=== PATIENT | female | born 1960 | race Caucasian/White ===

== ENCOUNTER 2017-03-21 06:40 | Day surgery (SDC) | payer MEDICAID ==
[~2017-03-21] VITALS: Ht 160 cm; Wt 65.6 kg
[2017-03-21] VITALS (8 sets, daily range): BP systolic 97–125; BP diastolic 62–89
[~2017-03-21 06:40] MED LIST: FURO20TA4 PO; GABA-532 PO; SPIR100T PO
[2017-03-21] MEDS ORDERED: normal saline 1000ml 1,000 ML IV SCH (07:00)
[2017-03-21] MEDS ORDERED: albumin (human) 25% 100 ML IV solution IV PRN (07:00)
[2017-03-21] MEDS ORDERED: pneumococcal 23-VAL P-sac vacc 25 mcg/0.5ml vial IMVAC ONE (08:10)
== END 2017-03-21 11:35 | disposition home or self-care (01) ==
LOC: SSTAY O 06:40
PROVIDERS: ATTEND Radiology Vascular & Interventional Radiology
DX: R18.8 Other ascites (principal); Z23 Encounter for immunization; Z98.890 Other specified postprocedural states; Z79.899 Other long term (current) drug therapy
CPT/HCPCS: 49083; 90471; 90732; A6257; A6449; P9047

== ENCOUNTER 2017-09-05 10:17 | Emergency (ER) | payer MEDICAID ==
[~2017-09-05] VITALS: Ht 160 cm; Wt 63.0 kg
[2017-09-05 10:52] LABS: BASOPHILS % (AUTO) 0 % (0-1); EOSINOPHILS % (AUTO) 0.1 % (0-6); HEMATOCRIT 24.5 % (35.0-45.0); HEMOGLOBIN 8.4 g/dl (12.0-16.0); LYMPHOCYTES # (AUTO) 0.9 X10'3 (1.1-4.8); LYMPHOCYTES % (AUTO) 11.1 % (21-51); MEAN CORPUSCULAR HEMOGLOBIN 42.6 PG (27.0-31.0); MEAN CORPUSCULAR HGB CONC 34.2 % (33.0-36.5); MEAN CORPUSCULAR VOLUME 124.5 FL (78-98); MEAN PLATELET VOLUME 8.1 FL (7.4-10.4); MONOCYTES # (AUTO) 1.4 X10'3 (0-0.9); MONOCYTES % (AUTO) 17.1 % (2-12); NEUTROPHILS # (AUTO) 5.7 X10'3 (1.8-7.7); NEUTROPHILS % (AUTO) 71.7 % (42-75); PLATELET COUNT 74 X10'3 (140-440); RED BLOOD COUNT 1.97 X10'6 (4.20-5.60); RED CELL DISTRIBUTION WIDTH 14.9 % (11.5-14.5)
[2017-09-05] MEDS ORDERED: normal saline 1000ML IV soln IVB ONE (10:55)
[2017-09-05 11:03] LABS: PROTHROMBIN TIME 20.3 SECONDS (9.0-12.0)
[2017-09-05 11:06] LABS: PLATELET ESTIMATE DECREASED
[2017-09-05 11:13] LABS: ALANINE AMINOTRANSFERASE 31 U/L (12-78); ALBUMIN 2.1 G/DL (3.4-5.0); ALKALINE PHOSPHATASE 51 IU/L (46-116); ANION GAP 11 (8-16); ASPARTATE AMINO TRANSFERASE 92 U/L (10-37); BILIRUBIN,TOTAL 10.4 MG/DL (0.1-1.0); BLOOD UREA NITROGEN 39 MG/DL (7-18); BUN/CREATININE RATIO 15.9 (6.6-38.0); CALCIUM 8.3 MG/DL (8.5-10.1); CHLORIDE 94 MMOL/L (99-107); CREATININE 2.45 MG/DL (0.40-0.90); SODIUM 133 MMOL/L (135-145); TOTAL CARBON DIOXIDE 28.1 MMOL/L (24-32); eGFR 20 ML/MIN
[2017-09-05 11:22] LABS: ALBUMIN/GLOBULIN RATIO 0.4 (1.1-1.5); GLUCOSE 99 MG/DL (70-104); TOTAL PROTEIN 7.2 G/DL (6.4-8.2)
[2017-09-05] MEDS ORDERED: potassium Cl oral solution 20 MEQ/15 ML PO ONE (11:40)
[2017-09-05 11:51] VITALS: BP 139/81
== END 2017-09-05 11:53 | disposition home or self-care (01) ==
LOC: ER 10:18
DX: N18.6 End stage renal disease (principal); F10.10 Alcohol abuse, uncomplicated; K70.30 Alcoholic cirrhosis of liver without ascites; E87.6 Hypokalemia; Z79.899 Other long term (current) drug therapy
CPT/HCPCS: 36415; 80053; 82140; 85025; 85610; 99284; J7030

== ENCOUNTER 2017-09-18 07:36 | Day surgery (SDC) | payer MEDICAID ==
[~2017-09-18] VITALS: Ht 160 cm; Wt 63.0 kg
[2017-09-18] VITALS (8 sets, daily range): BP systolic 90–108; BP diastolic 51–75
[2017-09-18] MEDS ORDERED: normal saline 1000ml 1,000 ML IV PRN (08:00)
[2017-09-18] MEDS ORDERED: Potassium PO (08:06)
[2017-09-18] MEDS ORDERED: LIDOcaine 1%/PF 5ML 10 MG/ML VIAL SQ ONE (08:30)
[2017-09-18] MEDS: albumin (human) 25% 100 ML IV solution IV PRN ×2 (09:22→09:50)
== END 2017-09-18 10:30 | disposition home or self-care (01) ==
LOC: SSTAY O 07:36
PROVIDERS: ATTEND Radiology Diagnostic Radiology
DX: K70.31 Alcoholic cirrhosis of liver with ascites (principal); E87.1 Hypo-osmolality and hyponatremia; L40.8 Other psoriasis; N18.6 End stage renal disease; F10.21 Alcohol dependence, in remission; Z90.89 Acquired absence of other organs; Z79.891 Long term (current) use of opiate analgesic; Z79.899 Other long term (current) drug therapy; Z98.890 Other specified postprocedural states
CPT/HCPCS: 49083; A6257; J2001; J7030; P9047

== ENCOUNTER 2017-10-01 09:11 | Inpatient (IN) | payer MEDICAID ==
[~2017-10-01] VITALS: Ht 160 cm; Wt 58.2 kg
[~2017-10-01 09:11] MED LIST changes: +Potassium PO
[2017-10-01] MEDS ORDERED: ondansetron/PF 4mg/2ml inj IV ONE (10:05)
[2017-10-01] MEDS ORDERED: morphine 4 MG/ML inj SYRINge IV PRN (10:05)
[2017-10-01 10:48] LABS: BASOPHILS % (AUTO) 0.2 % (0-1); EOSINOPHILS # (AUTO) 0.1 X10'3 (0-0.9); EOSINOPHILS % (AUTO) 1.1 % (0-6); HEMATOCRIT 24.9 % (35.0-45.0); HEMOGLOBIN 8.5 g/dl (12.0-16.0); LYMPHOCYTES # (AUTO) 1.2 X10'3 (1.1-4.8); LYMPHOCYTES % (AUTO) 10.6 % (21-51); MEAN CORPUSCULAR HEMOGLOBIN 40.4 PG (27.0-31.0); MEAN CORPUSCULAR HGB CONC 34.2 % (33.0-36.5); MEAN PLATELET VOLUME 7.3 FL (7.4-10.4); MONOCYTES # (AUTO) 0.9 X10'3 (0-0.9); MONOCYTES % (AUTO) 8.2 % (2-12); NEUTROPHILS # (AUTO) 8.9 X10'3 (1.8-7.7); NEUTROPHILS % (AUTO) 79.9 % (42-75); PLATELET COUNT 104 X10'3 (140-440); RED BLOOD COUNT 2.11 X10'6 (4.20-5.60); RED CELL DISTRIBUTION WIDTH 14.8 % (11.5-14.5); WHITE BLOOD COUNT 11.1 X10'3 (4.5-11.0)
[2017-10-01 11:02] LABS: ALANINE AMINOTRANSFERASE 18 U/L (12-78); ALKALINE PHOSPHATASE 63 IU/L (46-116); ANION GAP 10 (8-16); ASPARTATE AMINO TRANSFERASE 54 U/L (10-37); BILIRUBIN,TOTAL 6.6 MG/DL (0.1-1.0); BLOOD UREA NITROGEN 21 MG/DL (7-18); CHLORIDE 93 MMOL/L (99-107); CREATININE 1.61 MG/DL (0.40-0.90); ETHANOL 0.235 GM/DL (0.0-0.010); LIPASE 455 U/L (73-393); MAGNESIUM 1.2 MG/DL (1.5-2.4); POTASSIUM 3.5 MMOL/L (3.5-5.1); SODIUM 129 MMOL/L (135-145); TOTAL CARBON DIOXIDE 25.8 MMOL/L (24-32); eGFR 33 ML/MIN
[2017-10-01 11:03] LABS: ALBUMIN/GLOBULIN RATIO 0.4 (1.1-1.5); GLUCOSE 99 MG/DL (70-104); TOTAL PROTEIN 6.7 G/DL (6.4-8.2)
[2017-10-01] MEDS ORDERED: levoFLOXACIN-Levaquin 500mg/D5 100 ML IV ONE (11:25)
[2017-10-01] MEDS ORDERED: normal saline 1000ML IV soln IV ONE (11:30)
[2017-10-01 12:01] LABS: CLARITY,URINE SLIGHTLY CLOUDY (Clear); COLOR,URINE AMBER (Yellow); GLUCOSE, URINE NEGATIVE (Neg); KETONES,URINE NEGATIVE (Neg); LEUKOCYTE ESTERASE ,URINE NEGATIVE (Neg); NITRITES, URINE NEGATIVE (Neg); OCCULT BLOOD,URINE TRACE-INTACT (Neg); PROTEIN,URINE NEGATIVE (Neg)
[2017-10-01 12:03] LABS: URINE AMPHETAMINE SCREEN NEGATIVE (Neg); URINE BARBITUATE SCREEN NEGATIVE (Neg); URINE BENZODIAZEPINES SCREEN NEGATIVE (Neg); URINE CANNABINOID SCREEN NEGATIVE (Neg); URINE COCAINE SCREEN NEGATIVE (Neg); URINE METHADONE SCREEN NEGATIVE (Neg); URINE OPIATE SCREEN POSITIVE (Neg); URINE PHENCYCLIDINE SCREEN NEGATIVE (Neg)
[2017-10-01 12:06] LABS: UA COLLECTION TYPE STRAIGHT CATH
[2017-10-01 12:10] LABS: SQUAMOUS EPITHELIAL CELL,UR MODERATE /LPF (FEW)
[2017-10-01 12:11] LABS: CELLULAR CAST 0-4 /LPF (NEGATIVE); COARSE GRANULAR CAST 0-3 /LPF (NEGATIVE)
[2017-10-01 12:12] LABS: BACTERIA,URINE NONE SEEN /HPF (Neg); RBC,URINE NONE SEEN /HPF (0-2); WBC,URINE 0-4 /HPF (0-4)
[2017-10-01 12:13] LABS: MUCUS STRANDS NONE SEEN /LPF (Neg); RENAL CELLS, URINE FEW /HPF; TRANSITIONAL EPI CELLS,URINE FEW /HPF
[2017-10-01 12:14] LABS: AMORPHOUS URATES 3+
[2017-10-01 12:43] LABS: PLATELET ESTIMATE DECREASED
[2017-10-01] MEDS ORDERED: magnesium 4gm in 100ml NS 100 ML IV PRN (15:05)
[2017-10-01] MEDS ORDERED: acetaminophen 650mg rectal suppository RC PRN (15:05)
[2017-10-01] MEDS ORDERED: potassium Cl 20 mEq SR tablet PO PRN (15:05)
[2017-10-01] MEDS ORDERED: albumin (human) 25% 100 ML IV solution IV ONE (15:05)
[2017-10-01] MEDS ORDERED: magnesium hydroxide 30ml (MOM) UD suspension PO PRN (15:05)
[2017-10-01] MEDS ORDERED: magnesium 1gm/100ml D5W IVPB 100 ML IV PRN (15:05)
[2017-10-01] MEDS ORDERED: potassium Cl 40MEQ/NS 500ml 500 ML IV PRN ×2 (15:05)
[2017-10-01] MEDS ORDERED: mag hydrox/Alum hydrox/simeth 30ml oral suspension PO PRN (15:05)
[2017-10-01] MEDS ORDERED: LORazepam 2 mg/ml vial IV PRN (15:10)
[2017-10-01] MEDS ORDERED: vancomycin/NS 1 GM ADD-VANTAGE 250 ML IV ONE (15:10)
[2017-10-01] MEDS ORDERED: thiamine inj. 100 MG in normal saline 100ml IV soln 100 ML IV ONE (15:10)
[2017-10-01] MEDS ORDERED: haloperidol 5mg tablet PO PRN (15:10)
[2017-10-01] MEDS ORDERED: haloperidol lactate 5mg/ml inj IM PRN (15:10)
[2017-10-01] MEDS: normal saline 1000ml 1,000 ML IV SCH (15:24)
[2017-10-01 17:18] VITALS: BP 112/79
[2017-10-01 20:00] VITALS: BP 108/75
[2017-10-01] MEDS: gabapentin 300mg capsule PO SCH (20:54)
[2017-10-01] MEDS: ondansetron/PF 4mg/2ml inj IV PRN (20:54)
[2017-10-02] VITALS: BP 103/52
[2017-10-02] MEDS: normal saline 1000ml 1,000 ML IV SCH ×3 (03:14→18:00)
[2017-10-02 05:22] LABS: BASOPHILS % (AUTO) 0.3 % (0-1); EOSINOPHILS % (AUTO) 0.3 % (0-6); HEMATOCRIT 23.4 % (35.0-45.0); HEMOGLOBIN 7.9 g/dl (12.0-16.0); LYMPHOCYTES % (AUTO) 12.9 % (21-51); MEAN CORPUSCULAR HEMOGLOBIN 40.2 PG (27.0-31.0); MEAN CORPUSCULAR HGB CONC 33.7 % (33.0-36.5); MEAN CORPUSCULAR VOLUME 119.3 FL (78-98); MEAN PLATELET VOLUME 7.4 FL (7.4-10.4); MONOCYTES # (AUTO) 0.6 X10'3 (0-0.9); MONOCYTES % (AUTO) 7.4 % (2-12); NEUTROPHILS % (AUTO) 79.1 % (42-75); PLATELET COUNT 99 X10'3 (140-440); RED BLOOD COUNT 1.96 X10'6 (4.20-5.60); RED CELL DISTRIBUTION WIDTH 14.7 % (11.5-14.5); WHITE BLOOD COUNT 7.6 X10'3 (4.5-11.0)
[2017-10-02 05:30] LABS: INR 1.8 INR; PROTHROMBIN TIME 18.1 SECONDS (9.0-12.0)
[2017-10-02 05:57] LABS: ALANINE AMINOTRANSFERASE 12 U/L (12-78); ALBUMIN 2.2 G/DL (3.4-5.0); ALKALINE PHOSPHATASE 47 IU/L (46-116); ANION GAP 11 (8-16); ASPARTATE AMINO TRANSFERASE 42 U/L (10-37); BILIRUBIN,TOTAL 5.5 MG/DL (0.1-1.0); BLOOD UREA NITROGEN 18 MG/DL (7-18); BUN/CREATININE RATIO 15.4 (6.6-38.0); CALCIUM 7.1 MG/DL (8.5-10.1); CHLORIDE 98 MMOL/L (99-107); CREATININE 1.17 MG/DL (0.40-0.90); GLUCOSE 106 MG/DL (70-104); LIPASE 201 U/L (73-393); MAGNESIUM 1.3 MG/DL (1.5-2.4); POTASSIUM 3.5 MMOL/L (3.5-5.1); SODIUM 132 MMOL/L (135-145); TOTAL CARBON DIOXIDE 23.1 MMOL/L (24-32); eGFR 48 ML/MIN
[2017-10-02 06:06] LABS: ALBUMIN/GLOBULIN RATIO 0.6 (1.1-1.5); PHOSPHORUS 3.1 MG/DL (2.3-4.5); TOTAL PROTEIN 5.8 G/DL (6.4-8.2)
[2017-10-02 06:18] LABS: PLATELET ESTIMATE DECREASED
[2017-10-02 06:19] LABS: SCHISTOCYTES 1+
[2017-10-02] MEDS: levoFLOXACIN-Levaquin 500mg/D5 100 ML IV SCH (07:10)
[2017-10-02] MEDS: gabapentin 300mg capsule PO SCH ×3 (07:12→20:31)
[2017-10-02 07:53] VITALS: BP 89/58
[2017-10-02] MEDS ORDERED: folic acid inj. 2 MG, thiamine inj. 100 MG, MVI, adult No.4 with vit. K 10 ML in dextro... IV SCH ×4 (08:00)
[2017-10-02] MEDS: K and/or MAG REPLACEMENT MC SCH (08:00)
[2017-10-02 08:30] VITALS: BP 110/68
[2017-10-02] MEDS ORDERED: magnesium 4gm in 100ml NS 100 ML IV PRN (10:00)
[2017-10-02] MEDS ORDERED: potassium Cl 20 mEq SR tablet PO PRN ×2 (10:00)
[2017-10-02] MEDS ORDERED: potassium Cl 40MEQ/NS 500ml 500 ML IV PRN ×2 (10:00)
[2017-10-02] MEDS ORDERED: magnesium 1gm/100ml D5W IVPB 100 ML IV PRN (10:00)
[2017-10-02] MEDS: magnesium Cl slow-release 64mg tablet PO PRN ×2 (10:37→20:31)
[2017-10-02 11:00] VITALS: BP 115/70
[2017-10-02] MEDS ORDERED: LORazepam 2 mg/ml vial IV PRN (13:10)
[2017-10-02] MEDS ORDERED: mag hydrox/Alum hydrox/simeth 30ml oral suspension PO PRN (13:10)
[2017-10-02] MEDS ORDERED: haloperidol 5mg tablet PO PRN (13:10)
[2017-10-02] MEDS ORDERED: haloperidol lactate 5mg/ml inj IM PRN (13:10)
[2017-10-02] MEDS ORDERED: dicyclomine 10 MG capsule PO PRN (13:10)
[2017-10-02] MEDS ORDERED: dextrose 50%-water 50ml dispensing syringe IV PRN (13:10)
[2017-10-02] MEDS ORDERED: LORazepam 2 mg/ml vial IV ONE (13:15)
[2017-10-02 14:33] LABS: % IRON SATURATION 113 % (11-46); IRON 81 UG/DL (49-151); TOTAL IRON BINDING CAPACITY 72 UG/DL (259-388)
[2017-10-02] MEDS ORDERED: vancomycin/NS 1 GM ADD-VANTAGE 250 ML X 1 DOSE IV SCH (15:00)
[2017-10-02] MEDS: piperacillin/tazo 3.375gm/50ml 50 ML IV SCH ×3 (15:02→20:30)
[2017-10-02 15:48] LABS: FERRITIN 1205 NG/ML (8-252)
[2017-10-02] MEDS: lactulose 20gm/30ml cup PO SCH ×2 (16:18→20:30)
[2017-10-02] MEDS: vancomycin inj. 750 MG in normal saline 250ml IV soln 250 ML IV SCH (16:19)
[2017-10-02 20:00] VITALS: BP 131/86
[2017-10-02] MEDS: sodium bicarbonate 650mg tablet PO SCH (20:31)
[2017-10-02] MEDS: lactobacillus rhamnosus 10,000 MMU CELLS/CAPSULE PO SCH (20:33)
[2017-10-03] VITALS (18 sets, daily range): BP systolic 92–126; BP diastolic 63–83
[2017-10-03] MEDS: lactulose 20gm/30ml cup PO SCH ×6 (00:12→20:00)
[2017-10-03] MEDS: piperacillin/tazo 3.375gm/50ml 50 ML IV SCH ×4 (01:32→21:48)
[2017-10-03] MEDS: vancomycin inj. 750 MG in normal saline 250ml IV soln 250 ML IV SCH (02:48)
[2017-10-03 04:45] LABS: BASOPHILS # (AUTO) 0.1 X10'3 (0-0.2); EOSINOPHILS # (AUTO) 0.2 X10'3 (0-0.9); EOSINOPHILS % (AUTO) 3.3 % (0-6); LYMPHOCYTES # (AUTO) 1.1 X10'3 (1.1-4.8); LYMPHOCYTES % (AUTO) 20.7 % (21-51); MEAN CORPUSCULAR HEMOGLOBIN 39.8 PG (27.0-31.0); MEAN CORPUSCULAR HGB CONC 33.7 % (33.0-36.5); MEAN CORPUSCULAR VOLUME 118.1 FL (78-98); MEAN PLATELET VOLUME 7.1 FL (7.4-10.4); MONOCYTES # (AUTO) 0.6 X10'3 (0-0.9); MONOCYTES % (AUTO) 11.1 % (2-12); NEUTROPHILS # (AUTO) 3.5 X10'3 (1.8-7.7); NEUTROPHILS % (AUTO) 63.9 % (42-75); PLATELET COUNT 82 X10'3 (140-440); RED BLOOD COUNT 1.67 X10'6 (4.20-5.60); RED CELL DISTRIBUTION WIDTH 14.6 % (11.5-14.5); WHITE BLOOD COUNT 5.4 X10'3 (4.5-11.0)
[2017-10-03 04:50] LABS: OCCULT BLOOD STOOL NEGATIVE (Neg)
[2017-10-03 04:52] LABS: INR 1.8 INR; PROTHROMBIN TIME 18.7 SECONDS (9.0-12.0)
[2017-10-03 05:10] LABS: HEMATOCRIT 19.8 % (35.0-45.0); HEMOGLOBIN 6.7 g/dl (12.0-16.0)
[2017-10-03 05:18] LABS: ALANINE AMINOTRANSFERASE 22 U/L (12-78); ALBUMIN 1.9 G/DL (3.4-5.0); ALKALINE PHOSPHATASE 48 IU/L (46-116); AMYLASE 65 U/L (25-115); ANION GAP 7 (8-16); ASPARTATE AMINO TRANSFERASE 56 U/L (10-37); BILIRUBIN,TOTAL 4.7 MG/DL (0.1-1.0); BLOOD UREA NITROGEN 14 MG/DL (7-18); BUN/CREATININE RATIO 9.8 (6.6-38.0); CALCIUM 7.2 MG/DL (8.5-10.1); CHLORIDE 100 MMOL/L (99-107); CREATININE 1.43 MG/DL (0.40-0.90); GLUCOSE 100 MG/DL (70-104); LIPASE 224 U/L (73-393); MAGNESIUM 1.4 MG/DL (1.5-2.4); POTASSIUM 3.2 MMOL/L (3.5-5.1); SODIUM 131 MMOL/L (135-145); TOTAL CARBON DIOXIDE 24.3 MMOL/L (24-32); eGFR 38 ML/MIN
[2017-10-03 05:49] LABS: ALBUMIN/GLOBULIN RATIO 0.6 (1.1-1.5); TOTAL PROTEIN 5.3 G/DL (6.4-8.2)
[2017-10-03] MEDS: normal saline 1000ml 1,000 ML IV SCH ×2 (06:44→17:02)
[2017-10-03] MEDS: levoFLOXACIN-Levaquin 500mg/D5 100 ML IV SCH (07:11)
[2017-10-03] MEDS: gabapentin 300mg capsule PO SCH ×3 (07:20→21:37)
[2017-10-03] MEDS: magnesium Cl slow-release 64mg tablet PO PRN (07:26)
[2017-10-03] MEDS: lactobacillus rhamnosus 10,000 MMU CELLS/CAPSULE PO SCH ×2 (07:26→20:05)
[2017-10-03] MEDS: sodium bicarbonate 650mg tablet PO SCH ×3 (07:26→21:48)
[2017-10-03] MEDS: multivitamins, therapeutics tablet PO SCH (07:26)
[2017-10-03] MEDS: thiamine 100mg tablet PO SCH (07:26)
[2017-10-03] MEDS: potassium Cl 20 mEq SR tablet PO PRN ×3 (07:27→17:26)
[2017-10-03] MEDS: folic acid 1mg tablet PO SCH (07:30)
[2017-10-03] MEDS ORDERED: furosemide 40mg/4ml inj IV ONE (07:40)
[2017-10-03] MEDS: K and/or MAG REPLACEMENT MC SCH (08:00)
[2017-10-03 08:38] LABS: PLATELET ESTIMATE DECREASED
[2017-10-03 08:39] LABS: POIKILOCYTOSIS FEW; SCHISTOCYTES FEW; TEAR DROP CELLS FEW
[2017-10-03] MEDS ORDERED: octreotide 100mcg/1 ml ampule IV ONE ×2 (09:55→11:35)
[2017-10-03] MEDS ORDERED: LIDOcaine 0.5% (5mg/ml) 50ml vial ONE (10:13)
[2017-10-03] MEDS ORDERED: albumin (human) 25% 100 ML IV solution IV ONE (10:25)
[2017-10-03] MEDS ORDERED: vancomycin/NS 1 GM ADD-VANTAGE 250 ML IV SCH ×2 (15:00→19:00)
[2017-10-03] MEDS ORDERED: LORazepam 1 MG tablet PO PRN (15:10)
[2017-10-03] MEDS ORDERED: LORazepam 2 mg/ml vial IV PRN (15:10)
[2017-10-03] MEDS: octreotide inj. 1,250 MCG in normal saline 250ml IV soln 243.75 ML IV SCH (15:29)
[2017-10-03] MEDS: pantoprazole 40MG/NS 100ML BAG 100 ML IV SCH ×3 (15:36→21:37)
[2017-10-03 22:31] LABS: OCCULT BLOOD STOOL NEGATIVE (Neg)
[2017-10-04] VITALS (13 sets, daily range): BP systolic 95–123; BP diastolic 66–79
[2017-10-04] MEDS: pantoprazole 40MG/NS 100ML BAG 100 ML IV SCH ×5 (02:15→20:35)
[2017-10-04] MEDS ORDERED: VANCOMYCIN LEVEL IV ONE (02:30)
[2017-10-04] MEDS: piperacillin/tazo 3.375gm/50ml 50 ML IV SCH ×2 (02:54→07:35)
[2017-10-04] MEDS: normal saline 1000ml 1,000 ML IV SCH ×2 (03:02→16:26)
[2017-10-04] MEDS: lactulose 20gm/30ml cup PO SCH ×6 (04:00→20:35)
[2017-10-04 06:10] LABS: BASOPHILS % (AUTO) 0.9 % (0-1); EOSINOPHILS # (AUTO) 0.2 X10'3 (0-0.9); EOSINOPHILS % (AUTO) 3.1 % (0-6); HEMATOCRIT 29.8 % (35.0-45.0); HEMOGLOBIN 10.4 g/dl (12.0-16.0); LYMPHOCYTES % (AUTO) 19.8 % (21-51); MEAN CORPUSCULAR HEMOGLOBIN 37.6 PG (27.0-31.0); MEAN CORPUSCULAR VOLUME 107.4 FL (78-98); MEAN PLATELET VOLUME 7.4 FL (7.4-10.4); MONOCYTES # (AUTO) 0.5 X10'3 (0-0.9); MONOCYTES % (AUTO) 9.4 % (2-12); NEUTROPHILS # (AUTO) 3.4 X10'3 (1.8-7.7); NEUTROPHILS % (AUTO) 66.8 % (42-75); PLATELET COUNT 67 X10'3 (140-440); RED BLOOD COUNT 2.78 X10'6 (4.20-5.60); RED CELL DISTRIBUTION WIDTH 22.3 % (11.5-14.5); WHITE BLOOD COUNT 5.1 X10'3 (4.5-11.0)
[2017-10-04 06:37] LABS: ALANINE AMINOTRANSFERASE 16 U/L (12-78); ALBUMIN 2.1 G/DL (3.4-5.0); ALKALINE PHOSPHATASE 34 IU/L (46-116); AMYLASE 57 U/L (25-115); ANION GAP 9 (8-16); ASPARTATE AMINO TRANSFERASE 41 U/L (10-37); BILIRUBIN,TOTAL 8.4 MG/DL (0.1-1.0); BLOOD UREA NITROGEN 11 MG/DL (7-18); BUN/CREATININE RATIO 8.3 (6.6-38.0); CALCIUM 7.3 MG/DL (8.5-10.1); CHLORIDE 104 MMOL/L (99-107); CREATININE 1.32 MG/DL (0.40-0.90); GLUCOSE 137 MG/DL (70-104); LIPASE 243 U/L (73-393); MAGNESIUM 1.5 MG/DL (1.5-2.4); POTASSIUM 4.4 MMOL/L (3.5-5.1); SODIUM 135 MMOL/L (135-145); TOTAL CARBON DIOXIDE 22.4 MMOL/L (24-32); eGFR 42 ML/MIN
[2017-10-04 06:39] LABS: INR 2.2 INR; PROTHROMBIN TIME 21.8 SECONDS (9.0-12.0)
[2017-10-04 06:40] LABS: ALBUMIN/GLOBULIN RATIO 0.8 (1.1-1.5); PHOSPHORUS 1.8 MG/DL (2.3-4.5); TOTAL PROTEIN 4.8 G/DL (6.4-8.2)
[2017-10-04] MEDS: gabapentin 300mg capsule PO SCH ×3 (07:35→20:35)
[2017-10-04] MEDS: folic acid 1mg tablet PO SCH (07:35)
[2017-10-04] MEDS: lactobacillus rhamnosus 10,000 MMU CELLS/CAPSULE PO SCH ×2 (07:35→20:35)
[2017-10-04] MEDS: multivitamins, therapeutics tablet PO SCH (07:35)
[2017-10-04] MEDS: thiamine 100mg tablet PO SCH (07:35)
[2017-10-04] MEDS: sodium bicarbonate 650mg tablet PO SCH ×3 (07:35→20:35)
[2017-10-04] MEDS: K and/or MAG REPLACEMENT MC SCH (08:00)
[2017-10-04] MEDS: levoFLOXACIN-Levaquin 250mg/D5 50 ML IV SCH (08:52)
[2017-10-04 10:32] LABS: PLATELET ESTIMATE DECREASED; TOTAL CELLS COUNTED 100
[2017-10-04 10:33] LABS: POIKILOCYTOSIS FEW; SCHISTOCYTES FEW; SMUDGE CELLS 1+; TEAR DROP CELLS FEW
[2017-10-04 10:34] LABS: POLYCHROMASIA FEW
[2017-10-04] MEDS: octreotide inj. 1,250 MCG in normal saline 250ml IV soln 243.75 ML IV SCH ×2 (11:30→21:01)
[2017-10-04] MEDS: rifaximin 550mg tablet PO SCH ×2 (12:46→20:35)
[2017-10-04] MEDS ORDERED: LORazepam 1 MG tablet PO PRN (13:10)
[2017-10-04] MEDS ORDERED: LORazepam 2 mg/ml vial IV PRN (13:10)
[2017-10-04] MEDS ORDERED: fentaNYL/PF 50MCG/1 ML 2ML syringe ONE (13:19)
[2017-10-04] MEDS ORDERED: MIDAZolam 5mg/5ml vial ONE (13:20)
[2017-10-04] MEDS ORDERED: LIDOcaine Viscous 15ml cup ONE (13:21)
[2017-10-04] MEDS ORDERED: VANCOMYCIN LEVEL IV NR (14:30)
[2017-10-04] MEDS: metroNIDAZOLE-Flagyl 500mg/NS 100 ML IV SCH (18:28)
[2017-10-05] VITALS: BP 107/75
[2017-10-05] MEDS: lactulose 20gm/30ml cup PO SCH ×6 (00:47→19:44)
[2017-10-05] MEDS: metroNIDAZOLE-Flagyl 500mg/NS 100 ML IV SCH ×3 (00:47→16:51)
[2017-10-05] MEDS: pantoprazole 40MG/NS 100ML BAG 100 ML IV SCH ×3 (01:25→11:00)
[2017-10-05 06:06] LABS: BASOPHILS % (AUTO) 0.7 % (0-1); EOSINOPHILS # (AUTO) 0.2 X10'3 (0-0.9); EOSINOPHILS % (AUTO) 3.3 % (0-6); HEMATOCRIT 31.5 % (35.0-45.0); HEMOGLOBIN 10.8 g/dl (12.0-16.0); LYMPHOCYTES # (AUTO) 0.8 X10'3 (1.1-4.8); MEAN CORPUSCULAR HEMOGLOBIN 37.2 PG (27.0-31.0); MEAN CORPUSCULAR HGB CONC 34.3 % (33.0-36.5); MEAN CORPUSCULAR VOLUME 108.5 FL (78-98); MEAN PLATELET VOLUME 7.2 FL (7.4-10.4); MONOCYTES # (AUTO) 0.5 X10'3 (0-0.9); MONOCYTES % (AUTO) 9.9 % (2-12); NEUTROPHILS # (AUTO) 3.3 X10'3 (1.8-7.7); NEUTROPHILS % (AUTO) 69.1 % (42-75); PLATELET COUNT 71 X10'3 (140-440); RED CELL DISTRIBUTION WIDTH 22.9 % (11.5-14.5); WHITE BLOOD COUNT 4.8 X10'3 (4.5-11.0)
[2017-10-05 06:18] LABS: INR 2.2 INR
[2017-10-05 06:48] LABS: ALANINE AMINOTRANSFERASE 19 U/L (12-78); ALKALINE PHOSPHATASE 36 IU/L (46-116); AMYLASE 68 U/L (25-115); ANION GAP 9 (8-16); ASPARTATE AMINO TRANSFERASE 34 U/L (10-37); BILIRUBIN,TOTAL 5.1 MG/DL (0.1-1.0); BLOOD UREA NITROGEN 10 MG/DL (7-18); CALCIUM 7.6 MG/DL (8.5-10.1); CHLORIDE 107 MMOL/L (99-107); CREATININE 1.25 MG/DL (0.40-0.90); GLUCOSE 129 MG/DL (70-104); LIPASE 349 U/L (73-393); MAGNESIUM 1.6 MG/DL (1.5-2.4); POTASSIUM 3.8 MMOL/L (3.5-5.1); SODIUM 139 MMOL/L (135-145); TOTAL CARBON DIOXIDE 23.2 MMOL/L (24-32); eGFR 44 ML/MIN
[2017-10-05 06:53] LABS: ALBUMIN/GLOBULIN RATIO 0.6 (1.1-1.5); TOTAL PROTEIN 5.1 G/DL (6.4-8.2)
[2017-10-05 07:43] LABS: PLATELET ESTIMATE DECREASED
[2017-10-05 07:44] LABS: ANISOCYTOSIS 3+
[2017-10-05 08:00] VITALS: BP 90/75
[2017-10-05] MEDS: K and/or MAG REPLACEMENT MC SCH (08:00)
[2017-10-05] MEDS: levoFLOXACIN-Levaquin 250mg/D5 50 ML IV SCH (08:10)
[2017-10-05] MEDS: multivitamins, therapeutics tablet PO SCH (08:17)
[2017-10-05] MEDS: folic acid 1mg tablet PO SCH (08:17)
[2017-10-05] MEDS: sodium bicarbonate 650mg tablet PO SCH ×3 (08:17→20:40)
[2017-10-05] MEDS: gabapentin 300mg capsule PO SCH ×3 (08:17→20:39)
[2017-10-05] MEDS: lactobacillus rhamnosus 10,000 MMU CELLS/CAPSULE PO SCH ×2 (08:17→19:44)
[2017-10-05] MEDS: thiamine 100mg tablet PO SCH (08:23)
[2017-10-05] MEDS: rifaximin 550mg tablet PO SCH ×2 (08:23→19:44)
[2017-10-05] MEDS ORDERED: LIDOcaine 1%/PF 5ML 10 MG/ML VIAL ONE (11:36)
[2017-10-05 11:37] VITALS: BP 110/75
[2017-10-05 11:48] VITALS: BP 95/67
[2017-10-05 12:00] VITALS: BP 129/89
[2017-10-05] MEDS ORDERED: albumin (human) 25% 100 ML IV solution IV ONE (12:05)
[2017-10-05 12:42] LABS: ALBUMIN,BODY FLUID 0.7 G/DL; BF BILI 2.1 MG/DL; GLUCOSE,BODY FLUID 164 MG/DL; LDH,BODY FLUID 66 U/L
[2017-10-05 12:54] LABS: TOTAL PROTEIN,BODY FLUID < 2.0 G/DL
[2017-10-05] MEDS: normal saline 1000ml 1,000 ML IV SCH (13:11)
[2017-10-05 14:33] LABS: BFAPPEAR CLEAR; BFCOLOR YELLOW; BFVOLUME 53 ML
[2017-10-05 14:34] LABS: BF RBC COUNT 228 /CU MM; BF WBC COUNT 40 /CU MM (0-1000); NEUTROPHILS,BODY FLUID 22 %
[2017-10-05 14:35] LABS: BF MESOTHELIAL CELLS MODERATE; EOSINOPHILS,BODY FLUID 17 %; LYMPHOCYTES,BODY FLUID 51 %; MONOCYTES,BODY FLUID 10 %
[2017-10-05 14:36] LABS: BODY FLUID PH (NON-PLEURAL) 7.5
[2017-10-05] MEDS ORDERED: LORazepam 1 MG tablet PO PRN (15:10)
[2017-10-05] MEDS ORDERED: LORazepam 2 mg/ml vial IV PRN (15:10)
[2017-10-05 18:00] VITALS: BP 103/74
[2017-10-06] VITALS: BP 102/73
[2017-10-06] MEDS: metroNIDAZOLE-Flagyl 500mg/NS 100 ML IV SCH ×3 (00:03→15:33)
[2017-10-06] MEDS: lactulose 20gm/30ml cup PO SCH ×6 (00:03→15:34)
[2017-10-06] MEDS ORDERED: pantoprazole 40mg Tablet.DR PO SCH (07:30)
[2017-10-06] MEDS: ondansetron/PF 4mg/2ml inj IV PRN (07:53)
[2017-10-06] MEDS: folic acid 1mg tablet PO SCH (07:59)
[2017-10-06] MEDS: multivitamins, therapeutics tablet PO SCH (07:59)
[2017-10-06] MEDS: gabapentin 300mg capsule PO SCH ×2 (07:59→13:33)
[2017-10-06] MEDS: lactobacillus rhamnosus 10,000 MMU CELLS/CAPSULE PO SCH (07:59)
[2017-10-06] MEDS: sodium bicarbonate 650mg tablet PO SCH ×2 (07:59→13:33)
[2017-10-06] MEDS: levoFLOXACIN-Levaquin 250mg/D5 50 ML IV SCH (07:59)
[2017-10-06 08:00] VITALS: BP 103/74
[2017-10-06] MEDS: K and/or MAG REPLACEMENT MC SCH (08:00)
[2017-10-06] MEDS: rifaximin 550mg tablet PO SCH (08:00)
[2017-10-06] MEDS: thiamine 100mg tablet PO SCH (08:12)
[2017-10-06] MEDS: normal saline 1000ml 1,000 ML IV SCH (10:00)
[2017-10-06 12:00] VITALS: BP 105/75
[2017-10-06] MEDS ORDERED: LORazepam 2 mg/ml vial IV PRN (13:10)
[2017-10-06] MEDS ORDERED: LORazepam 1 MG tablet PO PRN (13:10)
[2017-10-06] MEDS ORDERED: AMOX-419 PO (15:22)
[2017-10-06] MEDS ORDERED: RIFA550T PO (15:22)
[2017-10-06] MEDS ORDERED: LACT1CAP26 PO (15:22)
[2017-10-06] MEDS ORDERED: MULT-1179 PO (15:22)
[2017-10-06] MEDS ORDERED: LACT10SO32 PO (15:22)
[2017-10-06] MEDS ORDERED: THI100T PO (15:22)
[2017-10-06] MEDS ORDERED: PANT40TA4 PO (15:22)
[2017-10-06] MEDS ORDERED: FOLI1TAB16 PO (15:22)
[2017-10-06] MEDS ORDERED: SODI650T29 PO (15:22)
[2017-10-06] MEDS ORDERED: SPIR50TA PO ×2 (15:27→15:30)
[2017-10-06] MEDS ORDERED: PROP10TA10 PO (15:30)
[2017-10-06] MEDS ORDERED: metroNIDAZOLE 500mg tablet PO SCH (16:00)
[2017-10-06] MEDS ORDERED: VANCOMYCIN LEVEL IV ONE (18:30)
[2017-10-07] MEDS ORDERED: levoFLOXACIN 250mg tablet PO SCH (11:00)
== END 2017-10-06 16:44 | disposition home health service (06) | DRG 720 ==
LOC: ER 09:11 → ED HOLD 15:02 → SUR 3N 16:56
PROVIDERS: ADMIT Family Medicine; ATTEND Family Medicine
PROC: 30233N1 Transfusion of Nonautologous Red Blood Cells into Peripheral Vein, Percutaneous Approach (ICD-10-PCS; 2017-10-03)
PROC: 0W9G3ZZ Drainage of Peritoneal Cavity, Percutaneous Approach (ICD-10-PCS; 2017-10-03)
PROC: 0DJ08ZZ Inspection of Upper Intestinal Tract, Via Natural or Artificial Opening Endoscopic (ICD-10-PCS; principal; 2017-10-04)
PROC: 0W9G3ZX Drainage of Peritoneal Cavity, Percutaneous Approach, Diagnostic (ICD-10-PCS; 2017-10-05)
DX: A41.9 Sepsis, unspecified organism (principal); D68.9 Coagulation defect, unspecified; D69.59 Other secondary thrombocytopenia; E87.2 Acidosis; E83.42 Hypomagnesemia; E87.1 Hypo-osmolality and hyponatremia; I85.00 Esophageal varices without bleeding; K76.6 Portal hypertension; K20.9 Esophagitis, unspecified; E87.6 Hypokalemia; K31.89 Other diseases of stomach and duodenum; D50.0 Iron deficiency anemia secondary to blood loss (chronic); R19.5 Other fecal abnormalities; J32.4 Chronic pansinusitis; D64.9 Anemia, unspecified; F10.20 Alcohol dependence, uncomplicated; K70.31 Alcoholic cirrhosis of liver with ascites; K72.90 Hepatic failure, unspecified without coma; L03.115 Cellulitis of right lower limb; Z91.19 Patient's noncompliance with other medical treatment and regimen; Z79.899 Other long term (current) drug therapy; Z71.41 Alcohol abuse counseling and surveillance of alcoholic
CPT/HCPCS: 36415; 49083; 71045; 80053; 80305; 80320; 81001; 82042; 82103; 82140; 82150; 82247; 82272; 82607; 82728; 82746; 82945; 83540; 83550; 83605; 83615; 83690; 83735; 83986; 84100; 84132; 84145; 84157; 85025; 85610; 86885; 86900; 86901; 86920; 87040; 87070; 89051; 93005; 93971; 96365; 96375; 97116; 97161; 99285; A4353; A4620; A6212; A6250; A6258; C9113; G0500; J1940; J1956; J2001; J2060; J2250; J2270; J2354; J2405; J2543; J3010; J3370; J3411; J3490; J7030; J7060; J7120; P9016; P9047

== ENCOUNTER 2017-11-09 07:57 | Day surgery (SDC) | payer MEDICAID ==
[~2017-11-09] VITALS: Ht 160 cm; Wt 68.4 kg
[~2017-11-09 07:57] MED LIST changes: +FOLI1TAB16 PO; +FURO-150 PO; -FURO20TA4 PO; -GABA-532 PO; +LACT10SO6 PO; +LACTC PO; +LIDOcaine 1% (10mg/ml)w/preservative injection 20ml MDV SQ ONE; +MV-M1TAB2 PO; +PANT-47 PO; +PROP10TA10 PO; -Potassium PO; +RIFA550T PO; +SODI650T29 PO; -SPIR100T PO; +SPIR50TA PO; +THIA100T70 PO
[2017-11-09 08:20] VITALS: BP 99/66
[2017-11-09] MEDS ORDERED: albumin (human) 25% 100 ML IV solution IV PRN (08:25)
[2017-11-09] MEDS ORDERED: normal saline 1000ml 1,000 ML IV PRN (08:25)
[2017-11-09] MEDS ORDERED: FURO-150 PO (08:42)
[2017-11-09 09:00] VITALS: BP 99/62
[2017-11-09 09:15] VITALS: BP 96/58
[2017-11-09 09:30] VITALS: BP 97/64
[2017-11-09 09:45] VITALS: BP 99/60
[2017-11-09 10:00] VITALS: BP 96/55
== END 2017-11-09 10:10 | disposition home or self-care (01) ==
LOC: SSTAY O 07:57
PROVIDERS: ATTEND Radiology Vascular & Interventional Radiology
DX: K70.31 Alcoholic cirrhosis of liver with ascites (principal); L40.8 Other psoriasis; F10.10 Alcohol abuse, uncomplicated; Z87.19 Personal history of other diseases of the digestive system; Z87.442 Personal history of urinary calculi; Z90.89 Acquired absence of other organs; Z79.899 Other long term (current) drug therapy; Z98.890 Other specified postprocedural states
CPT/HCPCS: 49083; A6257; J2001; J7030; P9047

== ENCOUNTER 2017-11-29 08:03 | Day surgery (SDC) | payer MEDICAID ==
[2017-11-29] VITALS (7 sets, daily range): BP systolic 96–110; BP diastolic 63–75
[~2017-11-29] VITALS: Ht 160 cm; Wt 63.7 kg
[~2017-11-29 08:03] MED LIST changes: +FERR325T28 PO; +GABA-532 PO; +LACT10SO32 PO; -LACT10SO6 PO; +LACT1CAP26 PO; -LACTC PO; -MV-M1TAB2 PO; +POT25TAB5 PO; -SODI650T29 PO
[2017-11-29] MEDS ORDERED: normal saline 1000ml 1,000 ML IV PRN (08:20)
[2017-11-29] MEDS ORDERED: albumin (human) 25% 100 ML IV solution IV PRN (08:20)
== END 2017-11-29 10:30 | disposition home or self-care (01) ==
LOC: SSTAY O 08:03
PROVIDERS: ATTEND Radiology Diagnostic Radiology
DX: K70.31 Alcoholic cirrhosis of liver with ascites (principal); F10.21 Alcohol dependence, in remission; Z87.442 Personal history of urinary calculi; Z90.89 Acquired absence of other organs; Z79.891 Long term (current) use of opiate analgesic; Z86.2 Personal history of diseases of the blood and blood-forming organs and certain disorders involving the immune mechanism; Z87.19 Personal history of other diseases of the digestive system; Z79.899 Other long term (current) drug therapy; Z98.890 Other specified postprocedural states
CPT/HCPCS: 49083; J2001; J7030; P9047

== ENCOUNTER 2017-12-11 07:25 | Day surgery (SDC) | payer MEDICAID ==
[~2017-12-11] VITALS: Ht 160 cm; Wt 60.2 kg
[~2017-12-11 07:25] MED LIST changes: -LIDOcaine 1% (10mg/ml)w/preservative injection 20ml MDV SQ ONE
[2017-12-11] MEDS ORDERED: albumin (human) 25% 100 ML IV solution IV PRN (08:00)
[2017-12-11] MEDS ORDERED: normal saline 1000ml 1,000 ML IV PRN (08:00)
[2017-12-11 08:01] VITALS: BP 90/71
[2017-12-11] MEDS ORDERED: LIDOcaine 1% (10mg/ml) 2ml vial ONE (08:04)
[2017-12-11] MEDS ORDERED: LIDOcaine 1% 30ml preserv. free vial SQ ONE (09:00)
[2017-12-11 09:25] VITALS: BP 109/72
[2017-12-11 09:30] VITALS: BP 110/70
[2017-12-11 09:45] VITALS: BP 107/67
== END 2017-12-11 10:05 | disposition home or self-care (01) ==
LOC: SSTAY O 07:25
PROVIDERS: ATTEND Radiology Diagnostic Radiology
DX: K70.31 Alcoholic cirrhosis of liver with ascites (principal); F10.21 Alcohol dependence, in remission; Z87.442 Personal history of urinary calculi; Z87.19 Personal history of other diseases of the digestive system; Z90.89 Acquired absence of other organs; Z86.2 Personal history of diseases of the blood and blood-forming organs and certain disorders involving the immune mechanism; Z98.890 Other specified postprocedural states; Z79.899 Other long term (current) drug therapy
CPT/HCPCS: 49083; J3490; J7030; P9047

== ENCOUNTER 2017-12-28 07:30 | Day surgery (SDC) | payer MEDICAID ==
[~2017-12-28] VITALS: Ht 160 cm; Wt 59.5 kg
[~2017-12-28 07:30] MED LIST changes: +LIDOcaine 1% 30ml preserv. free vial SQ STA; -RIFA550T PO
[2017-12-28 07:54] VITALS: BP 106/75
[2017-12-28] MEDS ORDERED: albumin (human) 25% 100 ML IV solution IV PRN (07:55)
[2017-12-28] MEDS ORDERED: normal saline 1000ml 1,000 ML IV PRN (07:55)
[2017-12-28 08:45] VITALS: BP 102/70
== END 2017-12-28 09:00 | disposition home or self-care (01) ==
LOC: SSTAY O 07:30
PROVIDERS: ATTEND Radiology Diagnostic Radiology
DX: R18.8 Other ascites (principal); K74.60 Unspecified cirrhosis of liver; Z87.19 Personal history of other diseases of the digestive system; Z79.891 Long term (current) use of opiate analgesic; Z87.442 Personal history of urinary calculi; Z90.89 Acquired absence of other organs; Z79.899 Other long term (current) drug therapy; Z98.890 Other specified postprocedural states
CPT/HCPCS: 76705; J7030; J3490

== ENCOUNTER 2018-05-13 08:10 | Day surgery (SDC) | payer MEDICAID ==
[~2018-05-13] VITALS: Ht 160 cm; Wt 60.5 kg
[~2018-05-13 08:10] MED LIST changes: -LIDOcaine 1% 30ml preserv. free vial SQ STA
[2018-05-13 08:17] VITALS: BP 128/75
[2018-05-13] MEDS ORDERED: fentaNYL/PF 50MCG/1 ML 2ML syringe ONE (08:36)
[2018-05-13] MEDS ORDERED: MIDAZolam 5mg/5ml vial ONE (08:36)
[2018-05-13] MEDS ORDERED: LIDOcaine Viscous 15ml cup ONE (08:37)
[2018-05-13] MEDS ORDERED: ACET-812 PO (08:38)
[2018-05-13] MEDS ORDERED: SPIR50TA5 PO (08:40)
[2018-05-13] MEDS ORDERED: LACT10SO6 PO (08:41)
[2018-05-13] MEDS ORDERED: PANT-47 PO (08:43)
[2018-05-13 09:29] VITALS: BP 107/65
[2018-05-13 09:39] VITALS: BP 124/77
[2018-05-13 09:49] VITALS: BP 131/85
[2018-05-13 09:59] VITALS: BP 129/83
== END 2018-05-13 10:15 | disposition home or self-care (01) ==
LOC: GI LAB 08:10
PROVIDERS: ATTEND Internal Medicine Gastroenterology
DX: I85.00 Esophageal varices without bleeding (principal); K29.50 Unspecified chronic gastritis without bleeding
CPT/HCPCS: 43239; J2250; J3010; J7030; 99152; A4620

== ENCOUNTER 2018-09-17 07:43 | Emergency (ER) | payer MEDICAID ==
[~2018-09-17] VITALS: Ht 160 cm; Wt 56.8 kg
[~2018-09-17 07:43] MED LIST changes: +ACET-812 PO; -FERR325T28 PO; -FURO-150 PO; -GABA-532 PO; -LACT10SO32 PO; +LACT10SO57 PO; -LACT1CAP26 PO; -PROP10TA10 PO; -SPIR50TA PO; +SPIR50TA5 PO; -THIA100T70 PO
[2018-09-17] MEDS ORDERED: ondansetron 4mg rapidly disintigrating tab PO ONE (08:10)
[2018-09-17] MEDS ORDERED: HYDROcodone/acetaminophen 10/325mg tab PO ONE (08:10)
[2018-09-17] MEDS ORDERED: traMADol 50MG tablet PO ONE (08:20)
--- NOTE | 2018-09-17 10:05 | NUR ---
systems technician at bedside at this time to place brace per PA order.
[2018-09-17] MEDS ORDERED: TRAM50TA2 PO (10:10)
[2018-09-17 10:46] VITALS: BP 125/75
== END 2018-09-17 10:47 | disposition home or self-care (01) ==
LOC: ER 07:44
DX: S82.192A Other fracture of upper end of left tibia, initial encounter for closed fracture (principal); S20.212A Contusion of left front wall of thorax, initial encounter; S50.812A Abrasion of left forearm, initial encounter; S40.012A Contusion of left shoulder, initial encounter; F10.99 Alcohol use, unspecified with unspecified alcohol-induced disorder; Z79.899 Other long term (current) drug therapy; W18.39XA Other fall on same level, initial encounter; Y93.89 Activity, other specified; Y92.89 Other specified places as the place of occurrence of the external cause; Y99.8 Other external cause status; Y90.9 Presence of alcohol in blood, level not specified
CPT/HCPCS: 71046; 73564; 73700; 99285; J2405

== ENCOUNTER 2019-06-03 13:23 | Emergency (ER) | payer MEDICAID, MEDICARE ==
[~2019-06-03] VITALS: Ht 160 cm; Wt 62.2 kg
[2019-06-03] MEDS ORDERED: ibuprofen tablet 400 MG TABLET PO ONE (14:25)
[2019-06-03 15:28] VITALS: BP 121/71
== END 2019-06-03 15:29 | disposition home or self-care (01) ==
LOC: ER 13:24
DX: S80.12XA Contusion of left lower leg, initial encounter (principal); Z79.899 Other long term (current) drug therapy; W01.198A Fall on same level from slipping, tripping and stumbling with subsequent striking against other object, initial encounter; Y93.89 Activity, other specified; Y92.89 Other specified places as the place of occurrence of the external cause; Y99.9 Unspecified external cause status
CPT/HCPCS: 93971; 99284

== ENCOUNTER 2019-08-18 07:52 | Day surgery (SDC) | payer MEDICAID, MEDICARE ==
[~2019-08-18] VITALS: Ht 160 cm; Wt 62.7 kg
[2019-08-18 08:04] VITALS: BP 146/97
[2019-08-18] MEDS ORDERED: fentaNYL/PF 50MCG/1 ML 2ML syringe ONE ×2 (08:19→08:20)
[2019-08-18] MEDS ORDERED: LIDOcaine Viscous 15ml cup ONE (08:20)
[2019-08-18] MEDS ORDERED: MIDAZolam 5mg/5ml vial ONE (08:20)
[2019-08-18 09:42] VITALS: BP 143/74
[2019-08-18] MEDS ORDERED: NO HOME MEDS (09:46)
[2019-08-18 09:52] VITALS: BP 137/54
[2019-08-18 10:02] VITALS: BP 124/77
[2019-08-18 10:12] VITALS: BP 126/80
== END 2019-08-18 10:15 | disposition home or self-care (01) ==
LOC: GI LAB 07:52
PROVIDERS: ATTEND Internal Medicine Gastroenterology
DX: I85.00 Esophageal varices without bleeding (principal); K31.7 Polyp of stomach and duodenum; K29.50 Unspecified chronic gastritis without bleeding
CPT/HCPCS: 43239; 43251; C1773; G0500; J2250; J3010; J7040; 99152; A4620

== ENCOUNTER 2020-01-06 14:53 | Emergency (ER) | payer MEDICARE ==
[~2020-01-06] VITALS: Ht 160 cm; Wt 69.4 kg
[~2020-01-06 14:53] MED LIST changes: -ACET-812 PO; -FOLI1TAB16 PO; -LACT10SO57 PO; +NO HOME MEDS; -PANT-47 PO; -POT25TAB5 PO; -SPIR50TA5 PO
[2020-01-06 15:49] LABS: BASOPHILS # (AUTO) 0.1 X10'3 (0-0.2); BASOPHILS % (AUTO) 1.9 % (0-1); EOSINOPHILS # (AUTO) 0.1 X10'3 (0-0.9); EOSINOPHILS % (AUTO) 2.9 % (0-6); HEMATOCRIT 22.1 % (35.0-45.0); HEMOGLOBIN 7.5 g/dl (12.0-16.0); LYMPHOCYTES % (AUTO) 29.1 % (21-51); MEAN CORPUSCULAR HEMOGLOBIN 40.3 PG (27.0-31.0); MEAN CORPUSCULAR HGB CONC 33.7 g/dL (33.0-36.5); MEAN CORPUSCULAR VOLUME 119.4 FL (78-98); MONOCYTES # (AUTO) 0.7 X10'3 (0-0.9); MONOCYTES % (AUTO) 20.4 % (2-12); NEUTROPHILS # (AUTO) 1.5 X10'3 (1.8-7.7); NEUTROPHILS % (AUTO) 45.7 % (42-75); PLATELET COUNT 70 X10'3 (140-440); RED BLOOD COUNT 1.85 X10'6 (4.20-5.60); RED CELL DISTRIBUTION WIDTH 16.4 % (11.5-14.5); WHITE BLOOD COUNT 3.3 X10'3 (4.5-11.0)
[2020-01-06 16:01] LABS: PARTIAL THROMBOPLASTIN TIME 28 SECONDS (22-32)
[2020-01-06] MEDS ORDERED: HUMAN PROTHROMBIN COMPLX(PCC) 500 UNIT KIT IV ONE (16:30)
[2020-01-06 16:48] LABS: ALANINE AMINOTRANSFERASE 46 U/L (12-78); ALBUMIN 2.4 G/DL (3.4-5.0); ALKALINE PHOSPHATASE 75 IU/L (46-116); ANION GAP 9 (8-16); ASPARTATE AMINO TRANSFERASE 115 U/L (10-37); BILIRUBIN,TOTAL 3.9 MG/DL (0.1-1.0); BLOOD UREA NITROGEN 12 MG/DL (7-18); BUN/CREATININE RATIO 8.7 (6.6-38.0); CALCIUM 8.6 MG/DL (8.5-10.1); CHLORIDE 104 MMOL/L (99-107); CREATININE 1.38 MG/DL (0.40-0.90); GLUCOSE 226 MG/DL (70-104); POTASSIUM 3.7 MMOL/L (3.5-5.1); SODIUM 138 MMOL/L (135-145); TOTAL CARBON DIOXIDE 25.5 MMOL/L (24-32); eGFR 39 ML/MIN
[2020-01-06 16:50] LABS: ALBUMIN/GLOBULIN RATIO 0.6 (1.1-1.5); TOTAL PROTEIN 6.6 G/DL (6.4-8.2)
[2020-01-06] MEDS ORDERED: PIGGYBACK IV ONE (16:55)
[2020-01-06] MEDS ORDERED: HUMAN PROTHROMBIN COMPLEX PCC IV ONE (16:55)
[2020-01-06 17:00] LABS: ANISOCYTOSIS 1+; PLATELET ESTIMATE DECREASED; POLYCHROMASIA FEW; SCHISTOCYTES FEW
[2020-01-06 17:24] VITALS: BP 122/79
== END 2020-01-06 18:45 | disposition home or self-care (01) ==
LOC: ER 14:56
DX: S00.83XA Contusion of other part of head, initial encounter (principal); D68.9 Coagulation defect, unspecified; Z72.89 Other problems related to lifestyle; X58.XXXA Exposure to other specified factors, initial encounter; Y93.89 Activity, other specified; Y92.89 Other specified places as the place of occurrence of the external cause; Y99.8 Other external cause status
CPT/HCPCS: 36415; 70480; 80053; 85025; 85610; 85730; 86885; 86900; 86901; 96374; 99284; C9132; 85008

== ENCOUNTER 2020-02-24 12:30 | Emergency (ER) | payer MEDICARE ==
[~2020-02-24] VITALS: Ht 160 cm; Wt 72.0 kg
[2020-02-24] MEDS ORDERED: normal saline 1000ML IV soln IVB ONE (14:45)
[2020-02-24 15:30] LABS: BASOPHILS # (AUTO) 0.1 X10'3 (0-0.2); EOSINOPHILS % (AUTO) 0.7 % (0-6); HEMOGLOBIN 9.5 g/dl (12.0-16.0); MONOCYTES # (AUTO) 0.8 X10'3 (0-0.9); NEUTROPHILS # (AUTO) 1.7 X10'3 (1.8-7.7); WHITE BLOOD COUNT 3.8 X10'3 (4.5-11.0)
[2020-02-24 15:32] LABS: BASOPHILS % (AUTO) 2.1 % (0-1); HEMATOCRIT 28.5 % (35.0-45.0); LYMPHOCYTES # (AUTO) 1.2 X10'3 (1.1-4.8); LYMPHOCYTES % (AUTO) 32.2 % (21-51); MEAN CORPUSCULAR HEMOGLOBIN 39.5 PG (27.0-31.0); MEAN CORPUSCULAR HGB CONC 33.3 g/dL (33.0-36.5); MEAN CORPUSCULAR VOLUME 118.4 FL (78-98); MEAN PLATELET VOLUME 8.9 FL (7.4-10.4); MONOCYTES % (AUTO) 20.8 % (2-12); NEUTROPHILS % (AUTO) 44.2 % (42-75); PLATELET COUNT 73 X10'3 (140-440); RED BLOOD COUNT 2.41 X10'6 (4.20-5.60); RED CELL DISTRIBUTION WIDTH 16.2 % (11.5-14.5)
[2020-02-24 15:45] LABS: ALANINE AMINOTRANSFERASE 53 U/L (12-78); ALBUMIN 2.2 G/DL (3.4-5.0); ALKALINE PHOSPHATASE 71 IU/L (46-116); ANION GAP 13 (8-16); ASPARTATE AMINO TRANSFERASE 134 U/L (10-37); BILIRUBIN,TOTAL 4.4 MG/DL (0.1-1.0); BLOOD UREA NITROGEN 9 MG/DL (7-18); BUN/CREATININE RATIO 7.7 (6.6-38.0); CALCIUM 8.3 MG/DL (8.5-10.1); CHLORIDE 98 MMOL/L (99-107); CREATININE 1.17 MG/DL (0.40-0.90); GLUCOSE 92 MG/DL (70-104); LIPASE 72 U/L (73-393); POTASSIUM 3.8 MMOL/L (3.5-5.1); SODIUM 135 MMOL/L (135-145); TOTAL CARBON DIOXIDE 24.2 MMOL/L (24-32); eGFR 48 ML/MIN
[2020-02-24 15:46] LABS: ALBUMIN/GLOBULIN RATIO 0.5 (1.1-1.5); TOTAL PROTEIN 6.9 G/DL (6.4-8.2)
[2020-02-24] MEDS ORDERED: LIDOcaine 1% W/epiNEPHrine 1:100,000 20ml vial SQ ONE (16:05)
--- NOTE | 2020-02-24 16:32 | NUR ---
Dr. Quinonez at bedside to do paracentesis. This RN at bedside
[2020-02-24 16:42] LABS: ANISOCYTOSIS 1+; PLATELET ESTIMATE DECREASED; POLYCHROMASIA 1+; SCHISTOCYTES FEW; TEAR DROP CELLS FEW; TOTAL CELLS COUNTED 100
[2020-02-24 16:43] LABS: ELLIPTOCYTES 2+; SMUDGE CELLS 1+
--- NOTE | 2020-02-24 17:05 | NUR ---
MD drained 4 bottles of yellowish, clear fluid from abdomen. Pt tolerated well, reports feeling much better. Specimens collected from lab
[2020-02-24 17:43] VITALS: BP 153/86
[2020-02-24 17:47] LABS: ALBUMIN,BODY FLUID < 0.6 G/DL
[2020-02-24 17:49] LABS: BF RBC COUNT 295 /CU MM; BF WBC COUNT 17 /CU MM (0-1000); BFAPPEAR CLEAR; BFCOLOR YELLOW; BFVOLUME 24 ML
[2020-02-24 17:57] LABS: TOTAL PROTEIN,BODY FLUID < 2.0 G/DL
[2020-02-24 18:04] LABS: LYMPHOCYTES,BODY FLUID 75 %; MONOCYTES,BODY FLUID 15 %; NEUTROPHILS,BODY FLUID 10 %
== END 2020-02-24 17:52 | disposition home or self-care (01) ==
LOC: ER 12:30
DX: K70.31 Alcoholic cirrhosis of liver with ascites (principal); R53.83 Other fatigue
CPT/HCPCS: 49083; 80053; 82042; 82140; 83690; 84157; 85007; 85025; 89051; 96360; 99285; J7030

== ENCOUNTER 2020-03-03 11:29 | Emergency (ER) | payer MEDICARE ==
[~2020-03-03] VITALS: Ht 160 cm; Wt 73.0 kg
[2020-03-03 12:45] LABS: BASOPHILS # (AUTO) 0.1 X10'3 (0-0.2); BASOPHILS % (AUTO) 1.3 % (0-1); EOSINOPHILS # (AUTO) 0.1 X10'3 (0-0.9); EOSINOPHILS % (AUTO) 1.3 % (0-6); HEMATOCRIT 27.7 % (35.0-45.0); HEMOGLOBIN 9.2 g/dl (12.0-16.0); LYMPHOCYTES % (AUTO) 22.8 % (21-51); MEAN CORPUSCULAR HEMOGLOBIN 39.5 PG (27.0-31.0); MEAN CORPUSCULAR HGB CONC 33.2 g/dL (33.0-36.5); MEAN CORPUSCULAR VOLUME 118.9 FL (78-98); MEAN PLATELET VOLUME 9.1 FL (7.4-10.4); MONOCYTES # (AUTO) 0.4 X10'3 (0-0.9); MONOCYTES % (AUTO) 9.8 % (2-12); NEUTROPHILS # (AUTO) 2.9 X10'3 (1.8-7.7); NEUTROPHILS % (AUTO) 64.8 % (42-75); PLATELET COUNT 92 X10'3 (140-440); RED BLOOD COUNT 2.33 X10'6 (4.20-5.60); RED CELL DISTRIBUTION WIDTH 17.2 % (11.5-14.5); WHITE BLOOD COUNT 4.5 X10'3 (4.5-11.0)
[2020-03-03 13:00] LABS: ALANINE AMINOTRANSFERASE 61 U/L (12-78); ALBUMIN 2.1 G/DL (3.4-5.0); ALKALINE PHOSPHATASE 74 IU/L (46-116); ANION GAP 9 (8-16); ASPARTATE AMINO TRANSFERASE 131 U/L (10-37); BILIRUBIN,TOTAL 5.2 MG/DL (0.1-1.0); BLOOD UREA NITROGEN 16 MG/DL (7-18); BUN/CREATININE RATIO 12.4 (6.6-38.0); CALCIUM 8.3 MG/DL (8.5-10.1); CHLORIDE 97 MMOL/L (99-107); CREATININE 1.29 MG/DL (0.40-0.90); LIPASE 111 U/L (73-393); POTASSIUM 3.8 MMOL/L (3.5-5.1); SODIUM 130 MMOL/L (135-145); TOTAL CARBON DIOXIDE 24.5 MMOL/L (24-32); eGFR 43 ML/MIN
[2020-03-03 13:01] LABS: ALBUMIN/GLOBULIN RATIO 0.4 (1.1-1.5); GLUCOSE 107 MG/DL (70-104); TOTAL PROTEIN 6.8 G/DL (6.4-8.2)
[2020-03-03 13:06] LABS: ANISOCYTOSIS 1+; PLATELET ESTIMATE DECREASED
[2020-03-03 13:07] LABS: MICROCYTOSIS FEW; TEAR DROP CELLS FEW
[2020-03-03 13:09] LABS: SCHISTOCYTES FEW
[2020-03-03] MEDS ORDERED: albumin (human) 25% 100 ML IV solution IV ONE (13:10)
--- NOTE | 2020-03-03 13:51 | NUR ---
Paracentesis in progress, will give med after completed
[2020-03-03 16:07] VITALS: BP 92/61
== END 2020-03-03 16:09 | disposition home or self-care (01) ==
LOC: ER 11:29
DX: K70.31 Alcoholic cirrhosis of liver with ascites (principal); F10.20 Alcohol dependence, uncomplicated; R10.84 Generalized abdominal pain; Z72.89 Other problems related to lifestyle
CPT/HCPCS: 36415; 49083; 80053; 82140; 83690; 85008; 85025; 96374; 99285; P9047; 32555; 99283

== ENCOUNTER 2020-03-12 09:39 | Emergency (ER) | payer MEDICARE ==
[~2020-03-12] VITALS: Ht 160 cm; Wt 70.9 kg
[2020-03-12] MEDS ORDERED: POTA10TA10 PO (10:01)
[2020-03-12] MEDS ORDERED: FURO-150 PO (10:01)
[2020-03-12] MEDS ORDERED: potassium Cl 20 mEq SR tablet PO STA (10:03)
[2020-03-12] MEDS ORDERED: furosemide 10 MG/1 ML 10ml inj IV ONE (10:05)
[2020-03-12 11:17] VITALS: BP 120/87
== END 2020-03-12 11:20 | disposition home or self-care (01) ==
LOC: ER 09:40
DX: R18.8 Other ascites (principal); Z72.89 Other problems related to lifestyle; Z79.899 Other long term (current) drug therapy
CPT/HCPCS: 96374; 99283; J1940

== ENCOUNTER 2020-03-30 08:47 | Emergency (ER) | payer MEDICARE ==
[~2020-03-30] VITALS: Ht 160 cm; Wt 65.4 kg
[~2020-03-30 08:47] MED LIST changes: +FURO-150 PO; +POTA10TA10 PO
[2020-03-30 08:49] VITALS: BP 136/91
== END 2020-03-30 09:39 | disposition home or self-care (01) ==
LOC: ER 08:47
DX: K74.60 Unspecified cirrhosis of liver (principal); R18.8 Other ascites; Z72.89 Other problems related to lifestyle; Z79.899 Other long term (current) drug therapy
CPT/HCPCS: 99281

== ENCOUNTER 2020-04-01 06:51 | Day surgery (SDC) | payer MEDICARE ==
[2020-04-01] VITALS (11 sets, daily range): BP systolic 95–126; BP diastolic 49–76
[~2020-04-01] VITALS: Ht 160 cm; Wt 73.7 kg
[2020-04-01] MEDS ORDERED: FURO-150 PO (07:54)
[2020-04-01] MEDS ORDERED: POTA10TA19 PO (07:54)
[2020-04-01] MEDS: albumin 25% 100mL bottle x 1 IV PRN ×2 (09:18→09:22)
[2020-04-01] MEDS ORDERED: FLU VACC QS2020-21(6MOS UP)/PF 60 MCG/0.5 ML SYRINGE IMVAC ONE (10:00)
== END 2020-04-01 11:00 | disposition home or self-care (01) ==
LOC: SSTAY O 06:51
PROVIDERS: ATTEND Radiology Diagnostic Radiology
DX: R18.8 Other ascites (principal); Z23 Encounter for immunization; K74.60 Unspecified cirrhosis of liver; Z98.890 Other specified postprocedural states; Z72.89 Other problems related to lifestyle; Z79.899 Other long term (current) drug therapy; Z87.19 Personal history of other diseases of the digestive system
CPT/HCPCS: 49083; G0008; P9047; Q2039

== ENCOUNTER 2020-04-26 06:30 | Day surgery (SDC) | payer MEDICARE ==
[2020-04-26] VITALS (8 sets, daily range): BP systolic 89–151; BP diastolic 53–94
[~2020-04-26] VITALS: Ht 160 cm; Wt 70.4 kg
[~2020-04-26 06:30] MED LIST changes: -NO HOME MEDS; -POTA10TA10 PO; +POTA10TA19 PO
[2020-04-26] MEDS ORDERED: normal saline 1000ml 1,000 ML IV PRN (07:00)
[2020-04-26] MEDS: albumin 25% 100mL bottle x 1 IV PRN ×2 (08:37→09:03)
== END 2020-04-26 09:50 | disposition home or self-care (01) ==
LOC: SSTAY O 06:30
PROVIDERS: ATTEND Radiology Diagnostic Radiology
DX: R18.8 Other ascites (principal); K74.60 Unspecified cirrhosis of liver; Z87.19 Personal history of other diseases of the digestive system; Z98.890 Other specified postprocedural states; Z72.89 Other problems related to lifestyle; Z79.899 Other long term (current) drug therapy
CPT/HCPCS: 49083; 76937; P9047

== ENCOUNTER 2020-05-11 06:48 | Day surgery (SDC) | payer MEDICARE ==
[~2020-05-11] VITALS: Ht 160 cm; Wt 65.5 kg
[2020-05-11] VITALS (7 sets, daily range): BP systolic 105–124; BP diastolic 48–77
[~2020-05-11 06:48] MED LIST changes: -POTA10TA19 PO
[2020-05-11] MEDS ORDERED: albumin 25% 100mL bottle x 1 IV PRN (07:20)
== END 2020-05-11 10:10 | disposition home or self-care (01) ==
LOC: SSTAY O 06:48
PROVIDERS: ATTEND Radiology Vascular & Interventional Radiology
DX: R18.8 Other ascites (principal); K74.60 Unspecified cirrhosis of liver; Z98.890 Other specified postprocedural states; Z79.899 Other long term (current) drug therapy; Z72.89 Other problems related to lifestyle
CPT/HCPCS: 49083; 76937; P9047

== ENCOUNTER 2020-05-24 09:17 | Day surgery (SDC) | payer MEDICARE ==
[~2020-05-24] VITALS: Ht 160 cm; Wt 145.0 kg
[2020-05-24 09:40] VITALS: BP 115/81
[2020-05-24] MEDS ORDERED: MULT-1085 PO (09:41)
[2020-05-24] MEDS ORDERED: LIDOcaine Viscous 15ml cup ONE (10:42)
[2020-05-24] MEDS ORDERED: fentaNYL/PF 50MCG/1 ML 2ML syringe ONE (10:42)
[2020-05-24] MEDS ORDERED: MIDAZolam 1 MG/ML 5ML VIAL ONE (10:42)
[2020-05-24 11:13] VITALS: BP 113/75
[2020-05-24 11:23] VITALS: BP 130/88
[2020-05-24 11:33] VITALS: BP 123/79
[2020-05-24 11:43] VITALS: BP 130/88
[2020-05-24 11:53] VITALS: BP 128/85
--- NOTE | 2020-05-24 11:55 | NUR ---
AWAKE VS WNL, NO CO PAIN DISCH INSTR GIVEN TO PT AND UNDERSTOOD. DR WELLS IN TO SEE PT. DISCH HOME WITH KEYANNA. IV DCD NO REDNESS OR BRUISING.
== END 2020-05-24 11:55 | disposition home or self-care (01) ==
LOC: GI LAB 09:17
PROVIDERS: ATTEND Internal Medicine Gastroenterology
DX: I85.00 Esophageal varices without bleeding (principal); D50.0 Iron deficiency anemia secondary to blood loss (chronic); K29.70 Gastritis, unspecified, without bleeding; K31.89 Other diseases of stomach and duodenum; K74.60 Unspecified cirrhosis of liver; Z79.899 Other long term (current) drug therapy
CPT/HCPCS: 43239; 99153; G0500; J2250; J3010; J7040; 88305; 99152; A4620

== ENCOUNTER 2020-06-14 06:25 | Day surgery (SDC) | payer MEDICARE ==
[~2020-06-14] VITALS: Ht 160 cm; Wt 66.3 kg
[~2020-06-14 06:25] MED LIST changes: +PANT40TA54 PO
[2020-06-14 06:51] VITALS: BP 132/79
[2020-06-14] MEDS ORDERED: albumin 25% 100mL bottle x 1 IV PRN (06:55)
[2020-06-14 08:29] VITALS: BP 114/35
[2020-06-14 08:44] VITALS: BP_SYST 105; BP_SYST 112; BP_DIAS 65
[2020-06-14 08:59] VITALS: BP 101/65
[2020-06-14 09:10] VITALS: BP 112/72
[2020-06-14 09:15] VITALS: BP 121/71
--- NOTE | 2020-06-14 09:22 | NUR ---
Pt lying in bed, eating sandwich from rehab center she brought with her and drinking her own soda. 125ml. Will continue to monitor.
== END 2020-06-14 09:30 | disposition home or self-care (01) ==
LOC: SSTAY O 06:25
PROVIDERS: ATTEND Radiology Vascular & Interventional Radiology
DX: R18.8 Other ascites (principal); K74.60 Unspecified cirrhosis of liver; N18.9 Chronic kidney disease, unspecified; D64.9 Anemia, unspecified; D61.818 Other pancytopenia; Z98.890 Other specified postprocedural states; Z72.89 Other problems related to lifestyle; Z79.899 Other long term (current) drug therapy
CPT/HCPCS: 49083; P9047

== ENCOUNTER 2020-07-02 06:30 | Day surgery (SDC) | payer MEDICARE ==
[2020-07-02] VITALS (8 sets, daily range): BP systolic 107–145; BP diastolic 65–94
[~2020-07-02] VITALS: Ht 160 cm; Wt 74.0 kg
[2020-07-02] MEDS ORDERED: albumin 25% 100mL bottle x 1 IV PRN (06:55)
[2020-07-02] MEDS ORDERED: MULT-1085 PO (07:10)
[2020-07-02] MEDS ORDERED: FOLIC ACID 1 MG PO (07:10)
[2020-07-02] MEDS ORDERED: POTA10TA10 PO (07:10)
[2020-07-02] MEDS ORDERED: LEVO50TA8 PO (07:10)
[2020-07-02] MEDS ORDERED: LIDOcaine 1% (10mg/ml) 2ml vial ONE (07:26)
== END 2020-07-02 10:39 | disposition home or self-care (01) ==
LOC: SSTAY O 06:30
PROVIDERS: ATTEND Radiology Vascular & Interventional Radiology
DX: R18.8 Other ascites (principal); K74.60 Unspecified cirrhosis of liver; D64.9 Anemia, unspecified; N18.9 Chronic kidney disease, unspecified; D61.818 Other pancytopenia; Z87.19 Personal history of other diseases of the digestive system; Z98.890 Other specified postprocedural states; Z72.89 Other problems related to lifestyle; Z79.899 Other long term (current) drug therapy
CPT/HCPCS: 49083; J2001; P9047

== ENCOUNTER 2020-07-13 10:26 | Emergency (ER) | payer MEDICARE ==
[~2020-07-13] VITALS: Ht 160 cm; Wt 74.0 kg
[~2020-07-13 10:26] MED LIST changes: +FOLIC ACID 1 MG PO; +LEVO50TA8 PO; +MULT-1085 PO; +POTA10TA10 PO
[2020-07-13 10:47] VITALS: BP 129/81
--- NOTE | 2020-07-13 12:30 | NUR ---
CAREGIVER IS AT THE BEDSIDE AND STATES THAT THE PATIENT MAY NEEDS ELECT[employer]ICAL SOLAR TECHNICIAN CONSULT FOR POSSIBLE PLACEMENT ISSUES. VIELKA TELLO ORDERED CONSULT.
== END 2020-07-13 15:06 | disposition home or self-care (01) ==
LOC: ER 10:26
DX: S50.02XA Contusion of left elbow, initial encounter (principal); F10.10 Alcohol abuse, uncomplicated; K74.60 Unspecified cirrhosis of liver; Z72.89 Other problems related to lifestyle; Z79.899 Other long term (current) drug therapy; Z98.890 Other specified postprocedural states; W01.198A Fall on same level from slipping, tripping and stumbling with subsequent striking against other object, initial encounter; Y92.018 Other place in single-family (private) house as the place of occurrence of the external cause; R20.2 Paresthesia of skin
CPT/HCPCS: 70450; 72100; 72125; 73080; 99285

== ENCOUNTER 2020-07-19 06:42 | Day surgery (SDC) | payer MEDICARE ==
[2020-07-19] VITALS (9 sets, daily range): BP systolic 103–129; BP diastolic 67–74
[~2020-07-19] VITALS: Ht 160 cm; Wt 71.6 kg
[2020-07-19] MEDS ORDERED: POTA10TA10 PO (07:12)
[2020-07-19] MEDS ORDERED: normal saline 1000ml 1,000 ML IV PRN (07:15)
[2020-07-19] MEDS ORDERED: albumin 25% 100mL bottle x 1 IV PRN (07:15)
== END 2020-07-19 10:05 | disposition home or self-care (01) ==
LOC: SSTAY O 06:42
PROVIDERS: ATTEND Radiology Diagnostic Radiology
DX: K70.31 Alcoholic cirrhosis of liver with ascites (principal); N18.9 Chronic kidney disease, unspecified; D64.9 Anemia, unspecified; Z79.899 Other long term (current) drug therapy; Z98.890 Other specified postprocedural states; Z72.89 Other problems related to lifestyle
CPT/HCPCS: 36415; 49083; 80048; 85025; 85610; P9047

== ENCOUNTER 2020-07-29 07:04 | Day surgery (SDC) | payer MEDICARE ==
[2020-07-29] VITALS (7 sets, daily range): BP systolic 100–118; BP diastolic 59–85
[~2020-07-29] VITALS: Ht 160 cm; Wt 70.0 kg
[2020-07-29] MEDS ORDERED: albumin 25% 100mL bottle x 1 IV PRN (08:20)
== END 2020-07-29 10:15 | disposition home or self-care (01) ==
LOC: SSTAY O 07:04
PROVIDERS: ATTEND Radiology Vascular & Interventional Radiology
DX: R18.8 Other ascites (principal); R14.0 Abdominal distension (gaseous); D64.9 Anemia, unspecified; N18.9 Chronic kidney disease, unspecified; D61.818 Other pancytopenia; K74.60 Unspecified cirrhosis of liver; Z72.89 Other problems related to lifestyle
CPT/HCPCS: 49083; P9047